=== PATIENT | male | born 1955 | race Caucasian/White ===

== ENCOUNTER 2016-07-04 03:20 | Emergency (ER) | payer MEDICARE, OTHER | END 2016-07-04 04:40 | disposition home or self-care (01) | LOC: ER 03:20 | DX: J20.9 Acute bronchitis, unspecified (principal); I10 Essential (primary) hypertension; E11.9 Type 2 diabetes mellitus without complications; I25.10 Atherosclerotic heart disease of native coronary artery without angina pectoris; I25.2 Old myocardial infarction; Z88.8 Allergy status to other drugs, medicaments and biological substances | CPT/HCPCS: 87400; 96372; 99283; 99283-25 ==